=== PATIENT | male | born 1950 | race Hispanic/Latino ===

== ENCOUNTER 2016-11-21 16:30 | Emergency (ER) | payer SELFPAY ==
[2016-11-21 16:44] VITALS: TEMP 98.4
--- NOTE | 2016-11-21 16:51 | CT ---
EXAM DESCRIPTION: CT HEAD WITHOUT IV CONTRAST CLINICAL HISTORY: 66 y/o , M, left facial drooping for three days COMPARISON: None. TECHNIQUE: Multiple computerized axial tomographic images were obtained of the head without administration of IV contrast. FINDINGS: No CT evidence of acute ischemia, acute hemorrhage, mass, mass effect, midline shift, or extra-axial fluid collection. Ventricles are normal in configuration without hydrocephalus. Paranasal sinuses are adequately aerated. Mastoid air cells are adequately aerated. Osseous structures and soft tissues are unremarkable. IMPRESSION: Nonacute CT of the brain. Electronically signed by: Nicola Giang 11/21/2016 16:50
--- NOTE | 2016-11-21 17:36 | ED.PDOC ---
History of Present Illness - General Chief Complaint: Neuro Symptoms/Deficits Stated Complaint: left side of face drooping Time Seen by Provider: 11/21/16 16:35 Source: patient, family Exam Limitations: language barrier - History of Present Illness Initial Comments: Patient presents with his family who say that he has had left facial drooping since tuesday. They think it has gotten worse. He was diagnosed at an outside clinic with Cunha's Palsy and given oral prednisone and acyclovir. Patient has had some trouble with his gait but the rest of his sx are left facial drooping, mouth drooping and week depression of the left eyelid. Otherwise, no other neurological symptoms. Patient has NIDDM. Timing/Duration: other - three days Severity: moderate Improving Factors: nothing Worsening Factors: nothing Associated Symptoms: denies symptoms Allergies/Adverse Reactions: Allergies Meperidine [From Demerol HCl] Allergy (Unverified 06/28/13 15:13) Home Medications: Ambulatory Orders Acyclovir [Zovirax] 800 mg PO TID 11/21/16 Alogliptin-Metformin HCl [Kazano] 1 tab PO DAILY 11/21/16 Glyburide 2.5 mg PO DAILY 11/21/16 predniSONE [Prednisone] 20 mg PO DAILY 11/21/16 Review of Systems - Review of Systems Constitutional: States: no symptoms reported EENTM: States: see HPI Respiratory: States: no symptoms reported Cardiology: States: no symptoms reported Gastrointestinal/Abdominal: States: no symptoms reported Genitourinary: States: no symptoms reported Musculoskeletal: States: no symptoms reported Skin: States: no symptoms reported Neurological: States: see HPI Endocrine: States: no symptoms reported Hematologic/Lymphatic: States: no symptoms reported Past Medical History (General) - Patient Medical History Hx Diabetes: Yes Surgical History: cholecystectomy - Vaccination History Hx Tetanus, Diphtheria Vaccination: No - unk Hx Influenza Vaccination: No - unk Hx Pneumococcal Vaccination: No - unk - Social History Hx Alcohol Use: No Hx Substance Use: No Family Medical History - Family History Mother Family History: Unknown Physical Exam - Physical Exam General Appearance: Alert Eye Exam: bilateral normal Ears, Nose, Throat: normal ENT inspection Neck: non-tender, supple Respiratory: lungs clear Cardiovascular/Chest: normal peripheral pulses, regular rate, rhythm Gastrointestinal/Abdominal: normal bowel sounds, non tender, soft Extremity: normal range of motion Neurologic: other - CN7 palsy with weak depression of left eyelid and drooping of the left side of the mouth when attempting to smile. No loss of sensation. Extremities have full AROM with 5/5 strength against resistance. Normal gait. DTR: 2+: Biceps, left, Biceps, right, Triceps, left, Triceps, right, Brachioradialis, left, Brachioradialis, right, Achilles, left, Achilles, right, Patellar, left, Patellar, right Skin Exam: normal color Lymphatic: no adenopathy Progress - Progress Progress: 11/21/16 17:40 CT head negative. Blood glucose 386. Patient had trace ketones in his urine but anion gap was 11. Potassium 4.8. He was given NS one liter IV bolus and human insulin 8 units sq x one. 11/21/16 18:25 2nd liter of NS given. 11/21/16 20:05 Repeat blood glucose was 313. Urine ketones at that time were negative. Potassium 4.3. Patient discharged and told to take his glyburide when he gets home and repeat his blood sugar by glucometer before bedtime. Sugar should be above 100. Resume regular medication regimen tomorrow. Follow up with pcp for scheduling MRI. - EKG/XRAY/CT CT Ordered: No Departure - Departure Clinical Impression: Cunha's palsy, Hyperglycemia due to type 2 diabetes mellitus Disposition: Discharge to Home or Self Care Condition: Good Departure Forms: ED Discharge - Pt. Copy, Patient Portal Self Enrollment Home Medications: Ambulatory Orders Acyclovir [Zovirax] 800 mg PO TID 11/21/16 Alogliptin-Metformin HCl [Kazano] 1 tab PO DAILY 11/21/16 Glyburide 2.5 mg PO DAILY 11/21/16 predniSONE [Prednisone] 20 mg PO DAILY 11/21/16 Additional Instructions: Llame toribio doctor esteban netoana para el horrario de MRI. Regrese si azucar mas de 100 antes the dormirse. Print Language: Japanese
[2016-11-21] MEDS ORDERED: INSULIN, REG.(HUMAN) 100 U/ML VIAL SUBCU ONE (18:23)
[2016-11-21] MEDS: SODIUM CHLORIDE 0.9% 1000ML 1,000 ML IVS ONE ×2 (18:29→19:11)
[2016-11-21] MEDS ORDERED: SODIUM CHLORIDE 0.9% 1000ML 1,000 ML IVS ONE (19:10)
[2016-11-21 19:48] VITALS: O2SAT 97
[2016-11-21 20:37] VITALS: BP 149/82
== END 2016-11-21 20:37 | disposition home or self-care (01) ==
LOC: ER 16:30
DX: G51.0 Bell's palsy (principal); E11.65 Type 2 diabetes mellitus with hyperglycemia; Z79.899 Other long term (current) drug therapy; Z88.8 Allergy status to other drugs, medicaments and biological substances
CPT/HCPCS: 36415; 70450; 80053; 81001; 82947; 84132; 85025; 85610; 93005; J7030